=== PATIENT | male | born 1955 | race Caucasian/White ===

== ENCOUNTER → 2018-09-14 | Outpatient (REF) | payer OTHER ==
[~2018-09-14] MED LIST: ASPI-715 PO; CEP500 PO; CIPR-344 PO; DIOVAN; FAMO20TA28 PO; FINA1TAB7 PO; HYDR1CAP15 PO; LOSA50TA80 PO; PHEN-530 PO; ROBC PO; TAMS0.4C76 PO; VALS40TA6 PO
== END ==
LOC: ZZSENDIN 17:12
PROVIDERS: ATTEND Family Medicine
DX: M79.671 Pain in right foot (principal)
CPT/HCPCS: 89060